=== PATIENT | male | born 1960 ===

== ENCOUNTER 2017-05-16 15:55 | Emergency (ER) | payer OTHER ==
[2017-05-16 15:55] VITALS: BMI 29.2
[2017-05-16 16:05] VITALS: TEMP 98.4; O2SAT 98
--- NOTE | 2017-05-16 16:41 | C.PDOC ---
History Of Present Illness 56 y/o male presents to ED with complaints of acute exacerbating chronic finger pain since this morning. Patient states he had trauma amputation 1 year ago and since then has intermittent pain and swelling to left 2nd finger but reports current pain and swelling more intense than usual. Patient reports limited relief with Naproxyn and states had revision surgery to address pain from initial surgery. [place] [facility] [place] patient has been trying to follow up with his hand surgeon but no response in the office or is "never in the office", patient requesting different referral for hand surgery. Patient denies new trauma, fever, numbness, weakness or any other complaints at this time. ACUTE EXAC CHRONIC FINGER PAIN SINCE THIS MORNING. 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 SINCE THEN W INTERMIT PAIN, SWELLING TO L 2ND FINGER BUT CURRENT PAIN AND SWELLING MORE INTENSE THAN USUAL. NO NEW TRAUMA, FEVER, OTHER ASSOC SX. LIMITED RELIEF W NAPROXYN PS HAD REVISION SURGERY TO ADDRESS PAIN FROM [place] [facility] [place]. PS HAS BEEN TRYING TO FOLLOW UP WITH HIS HAND SURGEON BUT NO RESPONSE IN THE OFFICE OR IS "NEVER IN THE OFFICE"/ REQUESTING DIFFERENT REFERRAL FOR HAND SURG EXAM MILD DIST EXT L HAND 2ND FINGER AMPUTATION DISTAL PIP. +TEND TIP OF DIGIT. MIN FINGER SWELL. SKIN NO ERYTHEMA, FLUCTUANCE, LESIONS. Time Seen by Provider: 05/16/17 16:38 Chief Complaint (Nursing): Upper Extremity Problem/Injury History Per: Patient History/Exam Limitations: no limitations Onset/Duration Of Symptoms: Intermittent Episodes Current Symptoms Are (Timing): Still Present Quality: "Pain" Past Medical History Reviewed: Historical Data, Nursing Documentation, Vital Signs Vital Signs: Last Vital Signs Temp 98.4 F 05/16/17 16:03 Pulse 90 05/16/17 16:03 Resp 16 05/16/17 16:03 BP 133/80 05/16/17 16:03 Pulse Ox 98 05/16/17 17:11 - Medical History PMH: Hypercholesterolemia Family History: States: No Known Family Hx - Social History Hx Alcohol Use: No Hx Substance Use: No Review Of Systems Except As Marked, All Systems Reviewed And Found Negative. Constitutional: Negative for: Fever, Chills Musculoskeletal: Positive for: Hand Pain. Negative for: Arm Pain Skin: Negative for: Rash Neurological: Negative for: Weakness, Numbness Physical Exam - Physical Exam Appears: Other (Mild distress) Skin: Normal Color, Warm, Dry, No Rash, Other (No eryhtema, flunctuance or lesions) Eye(s): bilateral: Normal Inspection Oral Mucosa: Moist Extremity: Tenderness (to tip of left 2nd digit ), Capillary Refill (<2 seconds) , Swelling (minimal left 2nd finger), Other (Left hand 2nd finger amputation distal to PIP) Pulses: Left Radial: Normal, Right Radial: Normal Neurological/Psych: Oriented x3, Normal Speech, Normal Cognition, Normal Motor, Normal Sensation ED Course And Treatment O2 Sat by Pulse Oximetry: 98 (RA) Pulse Ox Interpretation: Normal Progress - Re-Evaluation Re-evaluation Note: 05/16/17 16:53 PROCEDURE: DIGITAL BLOCK FOR PAIN RELIEF. STERILE PREP. BUPIVICAINE DIGITAL BLOCK APPLIED WO DIFF. PT TOLERATED WELL - Data Reviewed Data Reviewed: Old records Disposition Counseled Patient/Family Regarding: Diagnosis, Need For Followup - Disposition Referrals: Duc López MD [Staff Provider] - [facility] [Outside] [facility] [Outside] Disposition: HOME/ ROUTINE Disposition Time: 17:15 Condition: IMPROVED Additional Instructions: APPLY ICE TO AFFECTED AREA NEEDED. MOTRIN, TYLENOL DIRECTED. FOLLOW UP WITH HAND SURGERY Instructions: Chronic Pain (ED) Forms: [facility] (Greenlandic), Work Excuse Print Language: [place] - Clinical Impression Clinical Impression: Chronic pain, Finger pain - Scribe Statement The provider has reviewed the documentation as recorded by the Terrenceibjean-pierre Moran All medical record entries made by the Scribjean-pierre were at my direction and personally dictated by me. I have reviewed the chart and agree that the record accurately reflects my personal performance of the history, physical exam, medical decision making, and the department course for this patient. I have also personally directed, reviewed, and agree with the discharge instructions and disposition.
[2017-05-16] MEDS ORDERED: Bupivacaine HCl 0.25% PF (10 ml) Inj IJ ONE (16:49)
[2017-05-16 17:29] VITALS: BP 128/72; PULSE 78; RESP 18
== END 2017-05-16 17:33 | disposition home or self-care (01) ==
LOC: C.ER 15:55
DX: M79.645 Pain in left finger(s) (principal); Z89.022 Acquired absence of left finger(s)